=== PATIENT | female | born 1945 | race Caucasian/White ===

== ENCOUNTER 2018-12-26 21:09 | Observation (INO) ==
--- OUTSIDE RECORDS SUMMARY | 2018-12-26 21:12 | External Medical Summary | Continuity of Care Document ---
:1945 Author Name Scott Bingham Address Unavailable Unavailable , Care Team Providers Name Role Phone Raymundo Unavailable [email or web address] Active medical history not documented Allergies and Adverse Reactions Allergy history not documented Medications Medications not documented Procedures Procedures not documented Immunizations Immunizations not documented Plan of Treatment Planned Observations Planned Goals not documented Results No Known Results Results not documented
[2018-12-26 22:07] LABS: Hematocrit (blood only) 33.8 % (37-47); Hemoglobin 12.1 g/dL (12.0-16.0); Mean Corpuscular Hgb Conc 35.8 g/dL (32-36); Mean Corpuscular Volume 88.7 fL (80-100); Mean Platelet Volume 9.9 fL (7.4-10.4); Platelet Count 202 K/uL (130-400); RDW Coefficient of Variation 14.5 % (11.5-14.5); RDW Standard Deviation 47.2 fL (36.4-46.3); Red Blood Count 3.81 M/uL (4.2-5.4); White Blood Count 10.81 K/uL (4.8-10.8)
[2018-12-26 22:14] LABS: Alanine Aminotransferase 35 U/L (12-78); Albumin Level 4.2 gm/dl (3.4-5.0); Aspartate Aminotransferase 31 U/L (15-37); BUN Creatinine Ratio 16.4 (10-20); Blood Urea Nitrogen 14 mg/dl (7-18); Carbon Dioxide 22 mmol/L (21-32); Chloride 105 mmol/L (98-107); Creatinine Clr Calc Pharmacy 59.8 ml/min; Est GFR (Non-African American) 69.9; Glucose 106 mg/dl (70-99); Potassium 3.6 mmol/L (3.5-5.1); Sodium 138 mmol/L (136-145)
--- NOTE | 2018-12-26 22:18 | XRay Report ---
XR chest 1V portable CLINICAL HISTORY: rib pain pain COMPARISON STUDY: 09/01/2007 FINDINGS: The bones soft tissues and hemidiaphragms are normal. The cardiomediastinal silhouette is n ormal. The lungs are clear. The pulmonary vasculature is normal. IMPRESSION: Negative chest. The above report was generated using voice recognition software. It may contain grammatical, syntax or spelling errors. Electronically signed by: Nando Carr M.D. 12/26/2018 10:16 PM
[2018-12-26 22:19] LABS: Alkaline Phosphatase 134 U/L (45-117); Bilirubin,Total 0.4 mg/dl (0.2-1); Globulin 4.2 gm/dl (2.5-4.0); Total Protein 8.5 gm/dl (6.4-8.2); Troponin I < 0.015 ng/ml (0-0.045)
[2018-12-26 22:34] LABS: Basophils # (auto) 0.05 K/uL (0-0.2); Basophils % (auto) 0.5 %; Eosinophils # (auto) 0.46 K/uL (0-0.5); Eosinophils % (auto) 4.3 %; Immature Granulocytes # (auto) 0.03 K/uL (0.00-0.02); Immature Granulocytes % (auto) 0.3 %; Lymphocytes # (auto) 5.16 K/uL (1.2-3.4); Lymphocytes % (auto) 47.7 %; Monocytes # (auto) 0.93 K/uL (0.11-0.59); Monocytes % (auto) 8.6 %; Neutrophils # (auto) 4.18 K/uL (1.4-6.5); Neutrophils % (auto) 38.6 %; RBC Morphology Unremarkable
[2018-12-26] MEDS ORDERED: ASPIRIN CHEW 324 MG PO STA (22:34)
[2018-12-26] MEDS ORDERED: GI COCKTAIL ED USE PO ONE (22:36)
[2018-12-26 23:00] LABS: Partial Thromboplastin Ratio 0.9; Partial Thromboplastin Time 23.5 Seconds (21.0-31.0); Prothrombin Time 10.5 Seconds (9.0-12.0)
[2018-12-26] MEDS ORDERED: NITROGLYCERIN SL 0.4 MG/TAB TAB SL STA (23:07)
[2018-12-26] MEDS ORDERED: OPTIRAY 320 125ml IV PRN (23:11)
--- NOTE | 2018-12-27 00:14 | Emergency Department Note ---
Entered by Kirby Davis acting as a scribe for History of Present Illness General Chief complaint: Rib Injury/Pain Stated complaint: Bilateral flank pain Source: patient Limitations: no limitations History of Present Illness Onset (ago): hour(s) 3 Location: chest Pain Consistency: + intermittent Maximum Pain Intensity: 8 Quality: + sharp and + other (pressure) Exacerbated By: + other (coughing) Associated symptoms: + denies other symptoms (congestion and falling), + cough and + other (right ear pain); no shortness of breath Treatments prior to arrival: aspirin and other (tylenol) The patient is a 73 year old female who presents to the Emergency Room with c omplaints of intermittent rib pain starting 3 hours ago. The patient states she was sitting when she all of a sudden started to feel the pain. She states the pain feels like pressure and is sharp. She notes she has nausea. She notes her right ear has been bothering her for 3 days. She states she has been coughing for a few days and has not been bringing up any sputum. She states coughing makes the pain worse. She notes she has chronic intermittent back pain. She states she had 3 heart attacks before but states this does not feel like that. She states she took tylenol before coming to the ED. She states she takes aspirin every day. She notes she smokes 5 cigarettes a day. She denies SOB, rusty estion, and falling. Home Medications Home Medications Medication Instructions Recorded Confirmed Type acetaminophen [Tylenol Extra 500 mg PO Q6H PRN 12/26/18 12/26/18 History Strength] amlodipine 5 mg PO HS 12/26/18 12/26/18 History aspirin 81 mg PO QAM 12/26/18 12/26/18 History atorvastatin 40 mg PO HS 12/26/18 12/26/18 History clopidogrel [Plavix] 75 mg PO QAM 12/26/18 12/26/18 History metoprolol tartrate 50 mg PO BID 12/26/18 12/26/18 History nitroglycerin [Nitrostat] 0.4 mg SUBLINGUAL UD 12/26/18 12/26/18 History pantoprazole 40 mg PO QAM 12/26/18 12/26/18 History ramipril 10 mg PO BID 12/26/18 12/26/18 History Allergies Allergy/AdvReac Type Severity Reaction Status Date / Time No Known Allergies Allergy Mild NONE Verified 12/26/18 22:37 Past Med/Surg History Medical History Heart attack Surgical History H/O: hysterectomy Social History Feels Safe at Home: Yes Smoking Status: Current every day smoker Tobacco Type: cigarettes Cigarettes Per Day: 5 Review of Systems See HPI for pertinent positives & negatives. and A total of 10 systems reviewed and were otherwise negative Physical Exam Vital Signs Vital Signs - 24 hr 12/26/18 21:02 12/26/18 21:58 12/26/18 22:56 Temperature 37.3 C Temperature Source Oral Sepsis Recent Fever Within 48 Hours No Sepsis New/Unexplained Change in Mental Status No Sepsis Action Taken by Nursing No Action Required Pulse Rate 82 Pulse Rate [Apical] 76 Pulse Rate from SpO2 Sensor Pulse Strength Normal Respiratory Rate 20 22 Respiratory Effort / Characteristics Non-Labored Spontaneous Non-Labored Spontaneous Respiratory Depth Normal Normal Respiratory Pattern Regular Blood Pressure 147/62 H Blood Pressure [Left Arm] 141/64 H Blood Pressure Mean 90 Blood Pressure Mean [Left Arm] 89 Blood Pressure Position Lying Pulse Oximetry 95 98 95 Oxygen Delivery Method Room Air Room Air Room Air 12/26/18 23:41 12/26/18 23:46 12/27/18 00:00 Temperature Temperature Source Sepsis Recent Fever Within 48 Hours Sepsis New/Unexplained Change in Mental Status Sepsis Action Taken by Nursing Pulse Rate 80 79 74 Pulse Rate [Apical] Pulse Rate from SpO2 Sensor 81 79 Pulse Strength Respiratory Rate 26 H 19 21 Respiratory Effort / Characteristics Respiratory Depth Respiratory Pattern Blood Pressure 124/68 108/55 L 112/59 L Blood Pressure [Left Arm] Blood Pressure Mean 86 72 76 Blood Pressure Mean [Left Arm] Blood Pressure Position Pulse Oximetry 94 94 92 Oxygen Delivery Method Room Air Room Air Room Air 12/27/18 00:16 12/27/18 00:31 Temperature Temperature Source Sepsis Recent Fever Within 48 Hours Sepsis New/Unexplained Change in Mental Status Sepsis Action Taken by Nursing Pulse Rate 73 71 Pulse Rate [Apical] Pulse Rate from SpO2 Sensor Pulse Strength Respiratory Rate 23 20 Respiratory Effort / Characteristics Respiratory Depth Respiratory Pattern Blood Pressure 112/60 112/60 Blood Pressure [Left Arm] Blood Pressure Mean 77 77 Blood Pressure Mean [Left Arm] Blood Pressure Position Pulse Oximetry 93 94 Oxygen Delivery Method GENERAL: Awake, alert, well-appearing, in no distress HENT: Normocephalic, atraumatic. Oropharynx unremarkable. EYES: Normal conjunctiva. Sclera non-icteric. NECK: Supple. No nuchal rigidity. RESPIRATORY: Clear to auscultation. No wheezes. Normal respiratory effort. CARDIAC: Normal rate. Normal rhythm. Extremities warm and well perfused. GI: Soft, non-distended. No tenderness to palpation. No rebound or guarding. No masses. RECTAL: Deferred. MUSCULOSKELETAL: Atraumatic. Chest examination reveals no tenderness. There is no CVA tenderness to palpation. LOWER EXTREMITIES: Calves are equal size bilaterally and non-tender. No edema NEURO: Normal sensorium. No sensory or motor deficits noted. No facial droop. SKIN: Warm and dry. No rash or jaundice noted. Course 2227: The patient was evaluated in room A2, and a complete history and physical examination were performed. 0015: I discussed the patient's case [facility] will evaluate the patient for further management Administered Medications Ioversol (Optiray 320 125ml) 119 ml IV ONCE PRN PRN Reason: Interaction Checking Stop: 12/30/18 23:10 Last Admin: 12/26/18 23:11 Dose: 119 ml Documented by: [id number] Discontinued Medications Al Hydrox/Mg Hydrox/Simethicone () 1 dose PO ONE ONE Stop: 12/26/18 22:37 Last Admin: 12/26/18 22:56 Dose: 1 dose Documented by: [id number] Aspirin (Aspirin) 324 mg PO NOW STA Stop: 12/26/18 22:35 Last Admin: 12/26/18 22:56 Dose: 324 mg Documented by: [id number] Nitroglycerin (Nitrostat) 0.4 mg SL NOW STA Stop: 12/26/18 23:08 Last Admin: 12/26/18 23:40 Dose: 0.4 mg Documented by: [id number] Medical Decision Making Differential Diagnosis Differential diagnosis: Etiologies such as shingles, musculoskeletal pain, pericarditis, myocarditis, cardiac ischemia, pericardial tamponade, pneumonia, pneumothorax, pleural effusion, hemothorax, pleurisy, aortic pathology, pulmonary embolism, intra- abdominal process, as well as others were considered. Medical Records Attestation: I reviewed the patient's medical records. Home Medications Current Medication List: was personally reviewed by me Laboratory Data Attestation: I reviewed the patient's lab results. Result diagrams: 12/26/18 20:45 12/26/18 20:45 Lab Results 12/26/18 12/26/18 12/26/18 Range/Units 20:45 20:45 20:45 WBC 10.81 H (4.8-10.8) K/uL RBC 3.81 L (4.2-5.4) M/uL Hgb 12.1 (12.0-16.0) g/dL Hct 33.8 L (37-47) % MCV 88.7 (80-100) fL MCH 31.8 (25-34) pg MCHC 35.8 (32-36) g/dL RDW Std Deviation 47.2 H (36.4-46.3) fL RDW Coeff of Lulu 14.5 (11.5-14.5) % Plt Count 202 (130-400) K/uL MPV 9.9 (7.4-10.4) fL Immature Gran % (Auto) 0.3 % Neut % (Auto) 38.6 % Lymph % (Auto) 47.7 % [place] % (Auto) 8.6 % Eos % (Auto) 4.3 % Baso % (Auto) 0.5 % Immature Gran # (Auto) 0.03 H (0.00-0.02) K/uL Neut # (Auto) 4.18 (1.4-6.5) K/uL Lymph # (Auto) 5.16 H (1.2-3.4) K/uL [place] # (Auto) 0.93 H (0.11-0.59) K/uL Eos # (Auto) 0.46 (0-0.5) K/uL Baso # (Auto) 0.05 (0-0.2) K/uL RBC Morphology Unremarkable PT Cancelled INR Cancelled APTT Cancelled PTT Ratio Cancelled POC D-Dimer (0-450) ng/mlFEU Sodium 138 (136-145) mmol/L Potassium 3.6 (3.5-5.1) mmol/L Chloride 105 (98-107) mmol/L Carbon Dioxide 22 (21-32) mmol/L Anion Gap 10.0 (3-11) BUN 14 (7-18) mg/dl Creatinine 0.84 (0.6-1.2) mg/dl Est Cr Clr Drug Dosing 59.8 ml/min Est GFR ( Amer) 81.0 Est GFR (Non-Af Amer) 69.9 BUN/Creatinine Ratio 16.4 (10-20) Glucose 106 H (70-99) mg/dl Calcium 10.0 (8.5-10.1) mg/dl Magnesium 2.0 (1.8-2.4) mg/dl Total Bilirubin 0.4 (0.2-1) mg/dl AST 31 (15-37) U/L ALT 35 (12-78) U/L Alkaline Phosphatase 134 H (45-117) U/L Troponin I < 0.015 (0-0.045) ng/ml Total Protein 8.5 H (6.4-8.2) gm/dl Albumin 4.2 (3.4-5.0) gm/dl Globulin 4.2 H (2.5-4.0) gm/dl Albumin/Globulin Ratio 1.0 (0.9-2) Lipase 255 (73-393) U/L 12/26/18 12/26/18 Range/Units 22:41 22:44 WBC (4.8-10.8) K/uL RBC (4.2-5.4) M/uL Hgb (12.0-16.0) g/dL Hct (37-47) % MCV (80-100) fL MCH (25-34) pg MCHC (32-36) g/dL RDW Std Deviation (36.4-46.3) fL RDW Coeff of Lulu (11.5-14.5) % Plt Count (130-400) K/uL MPV (7.4-10.4) fL Immature Gran % (Auto) % Neut % (Auto) % Lymph % (Auto) % [place] % (Auto) % Eos % (Auto) % Baso % (Auto) % Immature Gran # (Auto) (0.00-0.02) K/uL Neut # (Auto) (1.4-6.5) K/uL Lymph # (Auto) (1.2-3.4) K/uL [place] # (Auto) (0.11-0.59) K/uL Eos # (Auto) (0-0.5) K/uL Baso # (Auto) (0-0.2) K/uL RBC Morphology PT 10.5 INR 1.0 APTT 23.5 PTT Ratio 0.9 POC D-Dimer > 450 H* (0-450) ng/mlFEU Sodium (136-145) mmol/L Potassium (3.5-5.1) mmol/L Chloride (98-107) mmol/L Carbon Dioxide (21-32) mmol/L Anion Gap (3-11) BUN (7-18) mg/dl Creatinine (0.6-1.2) mg/dl Est Cr Clr Drug Dosing ml/min Est GFR ( Amer) Est GFR (Non-Af Amer) BUN/Creatinine Ratio (10-20) Glucose (70-99) mg/dl Calcium (8.5-10.1) mg/dl Magnesium (1.8-2.4) mg/dl Total Bilirubin (0.2-1) mg/dl AST (15-37) U/L ALT (12-78) U/L Alkaline Phosphatase (45-117) U/L Troponin I (0-0.045) ng/ml Total Protein (6.4-8.2) gm/dl Albumin (3.4-5.0) gm/dl Globulin (2.5-4.0) gm/dl Albumin/Globulin Ratio (0.9-2) Lipase (73-393) U/L Imaging Data Radiologist's Impression: Radiology results as stated below per my review and the radiologist's interpretation: XR chest 1V portable CLINICAL HISTORY: rib pain pain COMPARISON STUDY: 09/01/2007 FINDINGS: The bones soft tissues and hemidiaphragms are normal. The cardiomediastinal silhouette is normal. The lungs are clear. The pulmonary vasculature is normal. IMPRESSION: Negative chest. The above report was generated using voice recognition software. It may contain grammatical, syntax or spelling errors. Electronically signed by: Nando Carr M.D. 12/26/2018 10:[address] CHEST WITH CONTRAST No Pulmonary embolus. Cardiomegaly. Enlarged subcarinal node. Small hiatal hernia and thickening of the distal esophagus. Pulmonary emphysema. Radiologist: Duncan Norwood M.D. Study ready at 23:30 and initial results transmitted at 00:05. ECG Data Attestation: I personally reviewed and interpreted this ECG as follows: Indication: chest pain Rate (beats per minute): 82 Rhythm: sinus rhythm Findings: + other (normal intervals); no PVC and no ST elevation Comparison ECG Date: from (10/11/09) Change: no significant change Blood Pressure Blood Pressure Findings: Normal blood pressure Blood Pressure Disposition: further management by hospitalist KIRILL Narrative Patient is a 73-year-old female presenting today complaining of lower chest pressure. Started between 730p and 8p this evening while at rest. Comes and goes in nature. Patient has significant cardiac history including stents. Denies any trauma. Has had 2 days of cold symptoms. Denies any difficulty breathing. Slight nausea earlier but that gone away. Benign abdomen. Doubt gallbladder pathology. Doubt pancreatitis or hepatitis. Chest x-ray shows no acute pneumonia process or pneumothorax. Doubt this dissection. D-dimer sent to help exclude PE. EKG shows no significant change at this time although patient continues to intermittently experience this nonreproducible lower chest wall pain. Again described less as pain more as a pressure. States when she had her heart issues a decade ago her symptoms were higher in her chest and this but described those as a pressure to. Given a GI cocktail and some aspirin here. Took Tylenol prior to arrival. Follows with [facility] cardiology. Did trial a dose of nitroglycerin to see if this would help with her symptoms as well. No significant change. CT of the chest did not show any acute PE per the stat read interpretation. Heart score 4. Patient still having intermittent symptoms. Given her cardiac history of heart score is at least a moderate risk. Discussed with her my strong recommendation for further cardiac monitoring and evaluation overnight. Patient was in agreement. [facility] hospitalist contacted. Impression & Plan Chest pain Discharge Plan Visit Data Chief Complaint: Rib Injury/Pain Stated Complaint: Bilateral flank pain ED Provider: Nicko Benito Discharge Problem: Chest pain Forms Stand Alone Forms: My [facility] [place] [employer] Prescriptions Prescriptions: No Action atorvastatin 40 mg Tablet 40 mg PO HS RF: 0 clopidogrel [Plavix] 75 mg Tablet 75 mg PO QAM RF: 0 amlodipine 5 mg Tablet 5 mg PO HS RF: 0 aspirin 81 mg Tablet,Delayed Release (Dr/Ec) 81 mg PO QAM RF: 0 acetaminophen [Tylenol Extra Strength] 500 mg Tablet 500 mg PO Q6H PRN (Reason: Pain) RF: 0 pantoprazole 40 mg Tablet,Delayed Release (Dr/Ec) 40 mg PO QAM RF: 0 metoprolol tartrate 50 mg Tablet 50 mg PO BID RF: 0 nitroglycerin [Nitrostat] 0.4 mg Tablet, Sublingual 0.4 mg sublingual UD RF: 0 ramipril 10 mg Capsule 10 mg PO BID RF: 0 Discharge Problem: Chest pain Qualifiers: Chest pain type: unspecified Qualified Code(s): R07.9 - Chest pain, unspecified The scribe's documentation has been prepared under my direction and personally reviewed by me in its entirety. I confirm that the note above accurately reflects all work, treatment, procedures, and medical decision making performed by me.
--- NOTE | 2018-12-27 00:52 | History & Physical Report ---
Date of Service December 27, 2018 Assessment & Plan (1) Atypical chest pain: Secondary to likely musculoskeletal secondary to cough symptoms No sepsis Patient still uncomfortable at the ER. CAD sp status stent PVD as per records hypertension, stable hyperlipidemia, on statin Rx COPD, not in acute exacerbation Cervical cancer status post surgery Hyperglycemia rule out DM ongoing tobacco abuse OBS PCU Analgesia for musculoskeletal pain Supportive measures for cough symptoms Troponin, TTE in a.m. RE chest pain Check hemoglobin A1c Nicotine patch as needed DVT prophylaxis. Lovenox subcu Full code Home in a.m. if patient comfortable and subsequent cardiac marker, TTE unremarkable. (2) Atypical chest pain: History of Present Illness Chief Complaint: Chest pain Primary Care Provider: Kole Forrest History obtained from patient and records. Medical history significant for CAD status stent , hypertension, hyperlipidemia, COPD, PVD, cervical cancer status post surgery, GERD, psoriatic arthritis as per records, ongoing tobacco abuse. Recent confinement 2009 under cardiology service for inferior wall [place] status post medical management. 2 days history of dry cough symptoms, no fever, no chills. Patient last night noted bilateral rib pain pressure like and sharp with some shortness of breath. No relief with nitroglycerin given at the ER. Medical History as above Surgical History : Hysterectomy Family History : Heart disease Personal/Social history : 5 cigarettes a day, no EtOH intake, lives with Allergies Allergy/AdvReac Type Severity Reaction Status Date / Time No Known Allergies Allergy Mild NONE Verified 12/26/18 22:37 Home Medications Home Medications Medication Instructions Recorded Confirmed Type acetaminophen [Tylenol Extra 500 mg PO Q6H PRN 12/26/18 12/26/18 History Strength] amlodipine 5 mg PO HS 12/26/18 12/26/18 History aspirin 81 mg PO QAM 12/26/18 12/26/18 History atorvastatin 40 mg PO HS 12/26/18 12/26/18 History clopidogrel [Plavix] 75 mg PO QAM 12/26/18 12/26/18 History metoprolol tartrate 50 mg PO BID 12/26/18 12/26/18 History nitroglycerin [Nitrostat] 0.4 mg SUBLINGUAL UD 12/26/18 12/26/18 History pantoprazole 40 mg PO QAM 12/26/18 12/26/18 History ramipril 10 mg PO BID 12/26/18 12/26/18 History codeine-guaifenesin [Guaifenesin 5 ml PO Q6H PRN #118 ml 12/27/18 Rx AC] Past Med/Surg History Medical History Heart attack Surgical History H/O: hysterectomy Social History Preferred Language: Slovenian Communication Ability: Effective Lock Plater Required: No Beliefs That Will Affect Care: None Current Living Situation: Spouse Other Information That Helps Us Care for You: No Feels Safe at Home: Yes Safety Concerns: Feels Safe At This Time Smoking Status: Current every day smoker Tobacco Type: cigarettes Cigarettes Per Day: 5 Do You Dip or Chew Tobacco: No Second Hand Exposure: No Tobacco Cessation Education Requested by Patient: No Hx Alcohol Use: No Hx Substance Use: No Review of Systems Review of Systems: As per HPI, all 10 systems reviewed, all other ROS negative Physical Exam Physical Exam: GENERAL: Comfortable, obese, looks younger than stated age, no respiratory distress SKIN: Normal color, warm HEENT: [place] palpebral conjunctivae, no ptosis, dry buccal mucosa NECK : Supple, short neck, no tenderness CHEST : Decreased breath sounds , bilateral subcostal tenderness HEART : RRR, no obvious murmurs ABDOMEN: Some distention, nontender EXTREMITIES : No LE swelling/tenderness, no other conspicuous deformities noted NEUROLOGIC : Coherent, no facial asymmetry, no other gross focality Results & Data Vital Signs (Past 12 Hours) Vital Signs Temp Pulse Pulse Resp BP BP Pulse Ox 12/27/18 00:31 71 20 112/60 94 12/27/18 00:16 73 23 112/60 93 12/27/18 00:00 74 21 112/59 L 92 12/26/18 23:46 79 19 108/55 L 94 12/26/18 23:41 80 26 H 124/68 94 12/26/18 22:56 76 22 141/64 H 95 12/26/18 21:58 98 12/26/18 21:02 37.3 C 82 20 147/62 H 95 Laboratory Results Laboratory Results WBC 10.81 K/uL (4.8-10.8) H 12/26/18 20:45 RBC 3.81 M/uL (4.2-5.4) L 12/26/18 20:45 Hgb 12.1 g/dL (12.0-16.0) 12/26/18 20:45 Hct 33.8 % (37-47) L 12/26/18 20:45 MCV 88.7 fL (80-100) 12/26/18 20:45 MCH 31.8 pg (25-34) 12/26/18 20:45 MCHC 35.8 g/dL (32-36) 12/26/18 20:45 RDW Std Deviation 47.2 fL (36.4-46.3) H 12/26/18 20:45 RDW Coeff of Lulu 14.5 % (11.5-14.5) 12/26/18 20:45 Plt Count 202 K/uL (130-400) 12/26/18 20:45 MPV 9.9 fL (7.4-10.4) 12/26/18 20:45 Immature Gran % (Auto) 0.3 % 12/26/18 20:45 Neut % (Auto) 38.6 % 12/26/18 20:45 Lymph % (Auto) 47.7 % 12/26/18 20:45 [place] % (Auto) 8.6 % 12/26/18 20:45 Eos % (Auto) 4.3 % 12/26/18 20:45 Baso % (Auto) 0.5 % 12/26/18 20:45 Immature Gran # (Auto) 0.03 K/uL (0.00-0.02) H 12/26/18 20:45 Neut # (Auto) 4.18 K/uL (1.4-6.5) 12/26/18 20:45 Lymph # (Auto) 5.16 K/uL (1.2-3.4) H 12/26/18 20:45 [place] # (Auto) 0.93 K/uL (0.11-0.59) H 12/26/18 20:45 Eos # (Auto) 0.46 K/uL (0-0.5) 12/26/18 20:45 Baso # (Auto) 0.05 K/uL (0-0.2) 12/26/18 20:45 RBC Morphology Unremarkable 12/26/18 20:45 PT 10.5 Seconds (9.0-12.0) 12/26/18 22:41 INR 1.0 (0.9-1.1) 12/26/18 22:41 APTT 23.5 Seconds (21.0-31.0) 12/26/18 22:41 PTT Ratio 0.9 12/26/18 22:41 POC D-Dimer > 450 ng/mlFEU (0-450) H* 12/26/18 22:44 Sodium 138 mmol/L (136-145) 12/26/18 20:45 Potassium 3.6 mmol/L (3.5-5.1) 12/26/18 20:45 Chloride 105 mmol/L (98-107) 12/26/18 20:45 Carbon Dioxide 22 mmol/L (21-32) 12/26/18 20:45 10.0 (3-11) 12/26/18 20:45 BUN 14 mg/dl (7-18) 12/26/18 20:45 0.84 mg/dl (0.6-1.2) 12/26/18 20:45 Est Cr Clr Drug Dosing 59.8 ml/min 12/26/18 20:45 Est GFR ( Amer) 81.0 12/26/18 20:45 Est GFR (Non-Af Amer) 69.9 12/26/18 20:45 16.4 (10-20) 12/26/18 20:45 Glucose 106 mg/dl (70-99) H 12/26/18 20:45 Calcium 10.0 mg/dl (8.5-10.1) 12/26/18 20:45 Magnesium 2.0 mg/dl (1.8-2.4) 12/26/18 20:45 0.4 mg/dl (0.2-1) 12/26/18 20:45 AST 31 U/L (15-37) 12/26/18 20:45 ALT 35 U/L (12-78) 12/26/18 20:45 134 U/L (45-117) H 12/26/18 20:45 < 0.015 ng/ml (0-0.045) 12/26/18 20:45 8.5 gm/dl (6.4-8.2) H 12/26/18 20:45 4.2 gm/dl (3.4-5.0) 12/26/18 20:45 4.2 gm/dl (2.5-4.0) H 12/26/18 20:45 1.0 (0.9-2) 12/26/18 20:45 255 U/L (73-393) 12/26/18 20:45 Diagnostic Findings CTA initial read: No pulmonary embolism. Cardiomegaly. Enlarged subcarinal node. Hiatal hernia, distal esophageal thickening, COPD EKG as per my interpretation rate 80, NSR, LVH, T wave flattening inferior leads
[2018-12-27] MEDS ORDERED: TRAMADOL HCL 50 MG TABLET PO STA (00:54)
[2018-12-27 01:20] LABS: Influenza A virus by PCR Neg for Influ A (Neg); Influenza B virus by PCR Neg for Influ B (Neg)
[2018-12-27] MEDS ORDERED: ATORVASTATIN 40 MG TAB PO STA (01:26)
[2018-12-27] MEDS ORDERED: NSS + 20MEQ KCL 20 MEQ/1,000 ML BAG IV ONE (02:00)
[2018-12-27] MEDS ORDERED: METOPROLOL TARTRATE 25 MG TAB PO STA (02:00)
[2018-12-27] MEDS ORDERED: TRAMADOL HCL 50 MG TABLET PO PRN (02:00)
[2018-12-27] MEDS ORDERED: LORazepam 0.25 MG/0.5 ML VIAL IV PRN (02:00)
[2018-12-27] MEDS ORDERED: PROMETHAZINE HCL 12.5 MG in SODIUM CHLORIDE 0.9% 50 ML IV PRN (02:00)
[2018-12-27] MEDS ORDERED: MoRPHine SULFATE 4 MG/ML 1 ML CARP\\VIAL IV PRN (02:00)
[2018-12-27] MEDS: guaiFENesin 600 MG TABCR PO SCH ×2 (02:40→09:26)
[2018-12-27 05:48] LABS: Basophils # (auto) 0.02 K/uL (0-0.2); Basophils % (auto) 0.2 %; Eosinophils % (auto) 3.5 %; Hematocrit (blood only) 31.4 % (37-47); Hemoglobin 10.5 g/dL (12.0-16.0); Immature Granulocytes # (auto) 0.02 K/uL (0.00-0.02); Immature Granulocytes % (auto) 0.2 %; Lymphocytes # (auto) 3.44 K/uL (1.2-3.4); Lymphocytes % (auto) 39.9 %; Mean Corpuscular Hgb Conc 33.4 g/dL (32-36); Mean Corpuscular Volume 90.5 fL (80-100); Mean Platelet Volume 9.7 fL (7.4-10.4); Monocytes # (auto) 0.78 K/uL (0.11-0.59); Neutrophils # (auto) 4.07 K/uL (1.4-6.5); Neutrophils % (auto) 47.2 %; Platelet Count 155 K/uL (130-400); RDW Coefficient of Variation 14.5 % (11.5-14.5); RDW Standard Deviation 47.7 fL (36.4-46.3); Red Blood Count 3.47 M/uL (4.2-5.4); White Blood Count 8.63 K/uL (4.8-10.8)
[2018-12-27 06:26] LABS: Alanine Aminotransferase 27 U/L (12-78); Albumin Level 3.4 gm/dl (3.4-5.0); Aspartate Aminotransferase 21 U/L (15-37); BUN Creatinine Ratio 19.7 (10-20); Blood Urea Nitrogen 13 mg/dl (7-18); Calcium 8.6 mg/dl (8.5-10.1); Carbon Dioxide 27 mmol/L (21-32); Chloride 107 mmol/L (98-107); Creatinine Clr Calc Pharmacy 71.7 ml/min; Glucose 100 mg/dl (70-99); Potassium 3.9 mmol/L (3.5-5.1); Sodium 139 mmol/L (136-145); Triglycerides 160 mg/dl (0-150); VLDL Cholesterol 32 mg/dl
[2018-12-27 06:33] LABS: Albumin Globulin Ratio 0.9 (0.9-2); Alkaline Phosphatase 123 U/L (45-117); Bilirubin,Total 0.4 mg/dl (0.2-1); Chol HDL Ratio 4; Cholesterol 127 mg/dl (0-200); Globulin 3.6 gm/dl (2.5-4.0); HDL Cholesterol 34 mg/dl; LDL Cholesterol Calculated 61 mg/dl; Troponin I < 0.015 ng/ml (0-0.045)
--- NOTE | 2018-12-27 07:28 | CT Scan Report ---
CHEST CTA for PULMONARY ARTERIES CT DOSE: 454.49 mGy.cm HISTORY: Bilateral rib pain. Short of breath. TECHNIQUE: Multiaxial CT images of the chest were performed following the intravenous administration of contrast to evaluate the pulmonary arteries. Maximal intensity projection images were also obtaine d. A dose lowering technique was utilized adhering to the principles of ALARA. COMPARISON STUDY: Chest CTA 09/02/2007. FINDINGS: No evidence for an aortic dissection or pulmonary embolus. The visualized liver spleen are unremarkable. Small hiatus hernia with mild thickening. The heart is normal in size. Mild mediastinal and bilateral hilar lymphadenopathy remains unchanged. This most pronounced at the subcarinal lymph node which measures 2.5 x 1.7 cm. No pleural or pericardial effusions. No acute fractures within the visualized osseous structures. The central airways are patent. Mild emphysema. No pneumothorax. No fo neftali lung consolidations to suggest pneumonia. Groundglass densities within the right lower lobe poste riorly favor mild dependent change. IMPRESSION: 1. No evidence for pulmonary embolus. 2. Mild emphysema. 3. Mild mediastinal and bilateral hilar lymphadenopathy, unchanged. 4. Mild thickening within the small hiatus hernia. Electronically signed by: John Benitez M.D. 12/27/2018 7:27 AM
[2018-12-27] MEDS ORDERED: CLOPIDOGREL BISULFATE 75 MG TAB PO SCH (09:00)
[2018-12-27] MEDS ORDERED: ENOXAPARIN INJ 30 MG/0.3 ML SYR SQ SCH (09:00)
[2018-12-27] MEDS ORDERED: ENALAPRIL MALEATE 10 MG TAB PO SCH (09:00)
[2018-12-27] MEDS ORDERED: ASPIRIN 81 MG ECTAB PO SCH (09:00)
[2018-12-27] MEDS ORDERED: METOPROLOL TARTRATE 50 MG TAB PO SCH (09:00)
[2018-12-27] MEDS ORDERED: PANTOprazole 40 MG TAB PO SCH (09:00)
[2018-12-27] MEDS ORDERED: ALBUT/IPRATROP 3MG/0.5MG NEB 3 ML VIAL NEB ONE (12:15)
[2018-12-27] MEDS ORDERED: predniSONE 20 MG TAB PO ONE (12:15)
--- NOTE | 2018-12-27 12:43 | Hospitalist Progress Note ---
Date of Service December 27, 2018 Assessment & Plan (1) Atypical chest pain: Complaint of ribs pain worsening with coughing Mostly due to musculoskeletal secondary to cough CXR negative CTA showed no evidence for pulmonary embolus. Mild emphysema. Mild mediastinal and bilateral hilar lymphadenopathy, unchanged. Troponinx3 negative EKG showed no ischemic changes Continue guaifenesin for cough No arrhythmia showed on tele monitor ECHO showed severe hypokinesis/akinesis of the basal/mid inferolateral wall with EF 55-60% ECHO finding discussed with cardiology that read the echo and related to previous [place] Will need to follow with cardiology to get a nuclear stress test as outpatient Continue aspirin, plavix, metoprolol and statin Cough CXR showed no pneumonia CTA chowed no PE Continue guaifenesin Will give [id number] Continue pain management CAD sp status stent Continue aspirin, plavix, metoprolol and statin Stable Hypertension BP stable Continue amlodipine and metoprolol and ACEI Hyperlipidemia Chol 127, LDL 61 and HDL 34 Continue statin COPD Not on any med Counseling on smoking cessation Hyperglycemia Hba1c pending Continue monitor Tobacco abuse Counseling on smoking cessation DVT prophylaxis on Lovenox subcu CODE STATUS Full code Disposition Possible discharge home today Subjective Pt was seen and examined Lying in bed with no distress Pt said that she continue to have a dry cough She said that every time she coughs, she does have tenderness in her rib area She said that she is having a hard time to bring the phlegm up Denies any SOB, palpitation, dizziness and SOB Physical Exam Physical Exam: General- No acute distress Head- atraumatic Eyes- PERRL, EOMI, ENT- oropharynx clear Neck- supple, no JVD Lungs- No wheezing, Decrease BS Heart- regular rhythm; no murmur Abdomen- normal bowel sounds, soft, nontender Extremities- no calf tenderness Neuro- alert, oriented x 3; PERRL, EOMI; no facial palsy; no dysarthria Skin- warm & dry Results & Data Vital Signs (Past 12 Hours) Vital Signs Temp Pulse Pulse Resp BP BP BP 12/27/18 11:55 36.9 C 58 L 18 112/58 L 12/27/18 07:27 73 12/27/18 06:59 36.9 C 71 18 139/66 12/27/18 02:12 36.9 C 85 20 149/83 H 12/27/18 01:31 71 18 113/69 12/27/18 01:16 74 16 125/69 12/27/18 01:01 81 24 119/81 12/27/18 00:46 78 23 133/76 Pulse Ox 12/27/18 11:55 92 12/27/18 07:27 12/27/18 06:59 96 12/27/18 02:12 96 12/27/18 01:31 92 12/27/18 01:16 94 12/27/18 01:01 93 12/27/18 00:46 92
[2018-12-27] MEDS ORDERED: ATORVASTATIN 40 MG TAB PO SCH (21:00)
[2018-12-27] MEDS ORDERED: AMLODIPINE BESYLATE 5 MG TAB PO SCH (21:00)
[2018-12-28 06:02] LABS: Estimated Average Glucose 131 mg/dl; Hemoglobin A1C 6.2 % (4.5-5.6)
--- NOTE | 2018-12-28 08:13 | Discharge Summary ---
Date of Service December 27, 2018 Admission HPI Per Admitting Provider History obtained from patient and records. Medical history significant for CAD status stent , hypertension, hyperlipidemia, COPD, PVD, cervical cancer status post surgery, GERD, psoriatic arthritis as per records, ongoing tobacco abuse. Recent confinement 2009 under cardiology service for inferior wall [facility] status post medical management. 2 days history of dry cough symptoms, no fever, no chills. Patient last night noted bilateral rib pain pressure like and sharp with some shortness of breath. No relief with nitroglycerin given at the ER. Medical History as above Surgical History : Hysterectomy Family History : Heart disease Personal/Social history : 5 cigarettes a day, no EtOH intake, lives with Admission Exam Per Admitting Provider GENERAL: Comfortable, obese, looks younger than stated age, no respiratory distress SKIN: Normal color, warm HEENT: Pastura palpebral conjunctivae, no ptosis, dry buccal mucosa NECK : Supple, short neck, no tenderness CHEST : Decreased breath sounds , bilateral subcostal tenderness HEART : RRR, no obvious murmurs ABDOMEN: Some distention, nontender EXTREMITIES : No LE swelling/tenderness, no other conspicuous deformities noted NEUROLOGIC : Coherent, no facial asymmetry, no other gross focality Principal Diagnosis Atypical chest pain Cough Hyperglycemia Tobacco abuse CAD Dyslipidemia HTN Discharge Exam General- No acute distress Head- atraumatic Eyes- PERRL, EOMI, ENT- oropharynx clear Neck- supple, no JVD Lungs- No wheezing, Decrease BS Heart- regular rhythm; no murmur Abdomen- normal bowel sounds, soft, nontender Extremities- no calf tenderness Neuro- alert, oriented x 3; PERRL, EOMI; no facial palsy; no dysarthria Skin- warm & dry Discharge Data Allergies Allergy/AdvReac Type Severity Reaction Status Date / Time No Known Allergies Allergy Mild NONE Verified 12/26/18 22:37 Consultations 12/27/18 00:12 ED Decision to Admit Stat Ordered Studies 12/26/18 23:02 CT angio chest PE protocol Urgent CHEST CTA for PULMONARY ARTERIES CT DOSE: 454.49 mGy.cm HISTORY: Bilateral rib pain. Short of breath. TECHNIQUE: Multiaxial CT images of the chest were performed following the intravenous administration of contrast to evaluate the pulmonary arteries. Maximal intensity projection images were also obtained. A dose lowering technique was utilized adhering to the principles of ALARA. COMPARISON STUDY: Chest CTA 09/02/2007. FINDINGS: No evidence for an aortic dissection or pulmonary embolus. The visualized liver spleen are unremarkable. Small hiatus hernia with mild thickening. The heart is normal in size. Mild mediastinal and bilateral hilar lymphadenopathy remains unchanged. This most pronounced at the subcarinal lymph node which measures 2.5 x 1.7 cm. No pleural or pericardial effusions. No acute fractures within the visualized osseous structures. The central airways are patent. Mild emphysema. No pneumothorax. No focal lung consolidations to suggest pneumonia. Groundglass densities within the right lower lobe posteriorly favor mild dependent change. IMPRESSION: 1. No evidence for pulmonary embolus. 2. Mild emphysema. 3. Mild mediastinal and bilateral hilar lymphadenopathy, unchanged. 4. Mild thickening within the small hiatus hernia. Electronically signed by: John Benitez M.D. 12/27/2018 7:27 AM Dictated: 12/27/18 0722 Transcribed: 12/27/18721 XR chest 1V portable CLINICAL HISTORY: rib pain pain COMPARISON STUDY: 09/01/2007 FINDINGS: The bones soft tissues and hemidiaphragms are normal. The cardiomediastinal silhouette is normal. The lungs are clear. The pulmonary vasculature is normal. IMPRESSION: Negative chest. The above report was generated using voice recognition software. It may contain grammatical, syntax or spelling errors. Electronically signed by: Nando Carr M.D. 12/26/2018 10:16 PM Dictated: 12/26/18 221 Transcribed: 12/26/182215 Hospital Course (1) Atypical chest pain: Complaint of ribs pain worsening with coughing Mostly due to musculoskeletal secondary to cough CXR negative CTA showed no evidence for pulmonary embolus. Mild emphysema. Mild mediastinal and bilateral hilar lymphadenopathy, unchanged. Troponinx3 negative EKG showed no ischemic changes Continue guaifenesin for cough No arrhythmia showed on tele monitor ECHO showed severe hypokinesis/akinesis of the basal/mid inferolateral wall with EF 55-60% ECHO finding discussed with cardiology that read the echo and related to previous [facility] Will need to follow with cardiology to get a nuclear stress test as outpatient Continue aspirin, plavix, metoprolol and statin Cough CXR showed no pneumonia CTA chowed no PE Continue guaifenesin Will give [email or web address] Continue pain management CAD sp status stent Continue aspirin, plavix, metoprolol and statin Stable Hypertension BP stable Continue amlodipine and metoprolol and ACEI Hyperlipidemia Chol 127, LDL 61 and HDL 34 Continue statin COPD Not on any med Counseling on smoking cessation Hyperglycemia Hba1c pending Continue monitor Tobacco abuse Counseling on smoking cessation DVT prophylaxis on Lovenox subcu CODE STATUS Full code Disposition Possible discharge home today Total Time Total Time Spent Total Time Spent (In Minutes): 35 minutes Total Time Includes: Examination of the Patient, Discharge Planning, Medication Reconciliation, Communication With Other Providers and Other Discharge Plan Discharge Items Patient Disposition: Home - Self-Care Reason For Visit: CP Discharge Diagnosis: Atypical chest pain Cough Hyperglycemia Tobacco abuse CAD Dyslipidemia HTN Discharge Goals: Decrease discomfort, Improve disease control, Increase independence and Improve nutritional status Activity: Resume your previous activity Activity Comment: As tolerated Non-emergency contact: Primary Care Provider Call non-emergency contact if: you have any medication questions and your temperature is above 101 Follow-up/Referrals: Kole Forrest [Primary Care Provider] - Diet: Heart Healthy Addtl Provider Instructions: Please call to schedule a follow up appointment with your primary care provider Dr. Forrest Please do not drive or operate any machine after taking cough medication with the codeinethat can lead to confusion, dizziness, drowsiness Counseling on tobacco abuse Follow a health diet HBA1c check for diabetes pending Prescriptions: New codeine-guaifenesin [Guaifenesin AC] 10-100 mg/5 mL liquid 5 ml PO Q6H PRN (Reason: cough) Qty: 118 RF: 0 Continued atorvastatin 40 mg Tablet 40 mg PO HS RF: 0 clopidogrel [Plavix] 75 mg Tablet 75 mg PO QAM RF: 0 amlodipine 5 mg Tablet 5 mg PO HS RF: 0 aspirin 81 mg Tablet,Delayed Release (Dr/Ec) 81 mg PO QAM RF: 0 acetaminophen [Tylenol Extra Strength] 500 mg Tablet 500 mg PO Q6H PRN (Reason: Pain) RF: 0 pantoprazole 40 mg Tablet,Delayed Release (Dr/Ec) 40 mg PO QAM RF: 0 metoprolol tartrate 50 mg Tablet 50 mg PO BID RF: 0 nitroglycerin [Nitrostat] 0.4 mg Tablet, Sublingual 0.4 mg sublingual UD RF: 0 ramipril 10 mg Capsule 10 mg PO BID RF: 0 Stand-Alone Forms: [employer] [facility]/Other Patient Handouts: Hyperglycemia, Pain Management Discharge Orders: Discharge Order (Routine); Ordered 12/27/18 Ordered By: Je Lopes Admission Data Admit Date/Time: 12/27/18 00:54 Attending Provider: Je Lopes Admit Provider: Sergio Patel Primary Care Provider: Kole Forrest Other Providers: Sergio Patel Service: Telemetry Other Interventions: Discharge Summary Assessment (RN) Last Done: 12/27/18 15:42 DC Date/Time DO NOT enter until pt leaves facility: 12/27/18 16:27
== END 2018-12-27 16:27 | disposition home or self-care (01) ==
LOC: ED 21:09 → 2E 21:09